=== PATIENT | female | born 1955 | race Caucasian/White ===

== ENCOUNTER → 2016-08-30 | Outpatient (CLI) | payer OTHER ==
[2016-08-30 11:22] LABS: BUN/CREATININE RATIO 25 (0-10)
== END ==
LOC: LAB 10:34
PROVIDERS: Family Medicine
DX: E78.1 Pure hyperglyceridemia (principal)
CPT/HCPCS: 36415; 80053; 80061

== ENCOUNTER → 2016-12-16 | Outpatient (CLI) | payer OTHER ==
[2016-12-16 11:50] LABS: BUN/CREATININE RATIO 27 (0-10)
== END ==
LOC: LAB 10:45
PROVIDERS: Family Medicine
DX: E78.2 Mixed hyperlipidemia (principal)
CPT/HCPCS: 36415; 80053; 80061

== ENCOUNTER → 2020-12-09 | Outpatient (CLI) | payer OTHER ==
[~2020-12-09] MED LIST: METOPROLOL TART25 MG PO; NORVASC10 MG PO; PRINIVIL10 MG PO; ZESTRIL40 MG PO; ZOFRAN ODT 4 MG4 MG PO
[2020-12-09 18:39] LABS: HEMOGLOBIN 12.5 gm/dl (12.3-15.3); RED BLOOD COUNT 4.13 M/UL (4.00-5.10); WHITE BLOOD COUNT 6.1 K/UL (4.5-11.0)
[2020-12-09 18:54] LABS: BUN/CREATININE RATIO 19 (0-10)
== END ==
LOC: LAB 17:49
PROVIDERS: Family Medicine
DX: I10 Essential (primary) hypertension (principal); E78.2 Mixed hyperlipidemia
CPT/HCPCS: 80053; 80061; 85027

== ENCOUNTER → 2021-08-12 | Outpatient (CLI) | payer OTHER ==
[2021-08-12 12:45] LABS: HEMOGLOBIN 13.4 gm/dl (12.3-15.3); RED BLOOD COUNT 4.56 M/UL (4.00-5.10); WHITE BLOOD COUNT 5.4 K/UL (4.5-11.0)
[2021-08-13 09:15] LABS: CALCIUM, SERUM 9.5 mg/dL (8.7-10.3); CREATININE, SERUM 0.8 mg/dL (0.57-1.00); POTASSIUM, SERUM 4.4 mmol/L (3.5-5.2)
== END ==
LOC: LAB 12:13
PROVIDERS: Internal Medicine Interventional Cardiology
DX: I48.91 Unspecified atrial fibrillation (principal); I10 Essential (primary) hypertension; R73.9 Hyperglycemia, unspecified; R60.9 Edema, unspecified; Z95.1 Presence of aortocoronary bypass graft
CPT/HCPCS: 36415; 80048; 85025